=== PATIENT | female | born 1950 | race Caucasian/White ===

== ENCOUNTER 2016-12-06 09:45 | Outpatient (CLI) | payer MEDICARE ==
--- NOTE | 2016-12-06 10:54 | Mammography Report ---
BILATERAL MAMMOGRAM: Patient with history of right breast cancer. FINDINGS: The breasts are almost entirely fat (<25% glandular). No mass, distortion, suspicious calcification, or skin change is seen. There are no significant changes compared to prior exam dating back to 2014. CAD was utilized. IMPRESSION: Negative mammogram. There is no mammographic evidence of malignancy. RECOMMENDATION: Follow-up per ACS guidelines. BI-RADS CATEGORY: 1 = Negative ACR BI-RADS MAMMOGRAPHIC CODES: 0 = Needs additional imaging evaluation; 1 = Negative; 2 = Benign; 3 = Probably benign; 4 = Suspicious; 5 = Malignant; 6 = Known biopsy-proven malignancy COMMENT: 1. Dense breast tissue, i.e., adenosis, fibrocystic changes, etc., may obscure an underlying neoplasm. 2. Approximately 10% of cancers are not detected with mammography. 3. A negative mammography report should not delay biopsy if a clinically suspicious mass is present. COMMENT: Patient follow-up letters are generated in [employer].
== END 2016-12-06 09:46 | disposition home or self-care (01) ==
LOC: MAMMO 09:45
PROVIDERS: ATTEND Internal Medicine
DX: Z12.31 Encounter for screening mammogram for malignant neoplasm of breast (principal); Z85.3 Personal history of malignant neoplasm of breast
CPT/HCPCS: 77067; G0202

== ENCOUNTER 2017-03-03 09:52 | Outpatient (CLI) | payer MEDICARE ==
--- NOTE | 2017-03-03 11:10 | Mammography Report ---
BONE DENSITY STUDY: Postmenopausal osteoporosis. DEFINITIONS: BMD = Bone Mineral Density T-score = BMD related to mean peak bone mass of young adult (mean expressed in Standard Deviation) Z-score = Age matched BMD expressed in SD World Health Organization (WHO) Diagnostic Criteria Normal T-score > -1 SD Osteopenia T-score between -1 and -2.4 SD Osteoporosis T-score -2.5 SD or below FINDINGS: The weighted average BMD of lumbar spine L1-L4 is 0.927 with a T-score of -1.1. The weighted average BMD of the left hip is 0.843 with a T-score of -0.8. IMPRESSION: The patient's average T-score is diagnostic for osteopenia and average relative risk for fracture. NOTE: BMD is not the only risk factor for fracture; also consider factors such as the patient's age, risk of falling, previous osteoporotic fracture, family history of osteoporotic fractures, current smoker, and low body weight. Mckoy's triangle is a region of interest in femur, predominantly of trabecular bone. It is not a true anatomic site, and ISCD does not recommend its use clinically.
== END 2017-03-03 09:53 | disposition home or self-care (01) ==
LOC: MAMMO 09:52
PROVIDERS: ATTEND Obstetrics & Gynecology
DX: M85.88 Other specified disorders of bone density and structure, other site (principal); M81.6 Localized osteoporosis [Lequesne]; Z78.0 Asymptomatic menopausal state
CPT/HCPCS: 77080

== ENCOUNTER 2017-12-08 09:21 | Outpatient (CLI) | payer MEDICARE ==
--- NOTE | 2017-12-08 16:15 | Mammography Report ---
BILATERAL DIGITAL SCREENING MAMMOGRAM with CAD: 12/08/17 09:21:00 CLINICAL: Routine screening. COMPARISON:12/06/16 FINDINGS: The breasts are almost entirely fatty. No mass, architectural distortion or suspicious calcifications. IMPRESSION: No mammographic evidence of malignancy. BI-RADS CATEGORY: 1 - - Negative RECOMMENDATION: Routine mammographic screening in one year. COMMENT: Patient follow-up letters are generated by our [employer] application.
== END 2017-12-08 09:22 | disposition home or self-care (01) ==
LOC: MAMMO 09:21
PROVIDERS: ATTEND Internal Medicine
DX: Z12.31 Encounter for screening mammogram for malignant neoplasm of breast (principal)
CPT/HCPCS: 77067

== ENCOUNTER 2019-01-27 10:29 | Outpatient (CLI) | payer MEDICARE ==
--- NOTE | 2019-01-27 13:26 | Mammography Report ---
BILATERAL DIGITAL SCREENING MAMMOGRAM with CAD: 01/27/19 10:29:00 CLINICAL: Routine screening. COMPARISON:12/08/17 FINDINGS: The breasts are almost entirely fatty. No mass, architectural distortion or suspicious calcifications. IMPRESSION: No mammographic evidence of malignancy. BI-RADS CATEGORY: 1 - - Negative RECOMMENDATION: Routine mammographic screening in one year. COMMENT: Patient follow-up letters are generated by our [employer] application.
== END 2019-01-27 10:30 | disposition home or self-care (01) ==
LOC: MAMMO 10:29
PROVIDERS: ATTEND Internal Medicine
DX: Z12.31 Encounter for screening mammogram for malignant neoplasm of breast (principal)
CPT/HCPCS: 77067

== ENCOUNTER 2019-09-08 10:45 | Emergency (ER) | payer MEDICARE ==
[2019-09-08] MEDS ORDERED: ACETAMINOPHEN 325 MG TAB ONE (11:04)
[2019-09-08] MEDS ORDERED: ACETAMINOPHEN 325 MG TAB PO ONE (11:05)
--- NOTE | 2019-09-08 11:07 | Emergency Department Report ---
Chief Complaint: Back Pain/Injury Stated Complaint: PAIN ON MY BACK Time Seen by Provider: 09/08/19 11:06 - HPI History of Present Illness: 69 y/o fem p/w non traumatic lower back pain x 1 week, paralumbar walks w steady gait neuro non focal bmp, ck, ua, ct a/p apap for pain reassess ok for minor care Vital Signs 09/08/19 10:59 Temperature 98.3 F Pulse Rate 83 Respiratory 18 Rate Blood Pressure 137/59 O2 Sat by Pulse 98 Oximetry - Exam Vital Signs: Vital Signs 09/08/19 10:59 Temperature 98.3 F Pulse Rate 83 Respiratory 18 Rate Blood Pressure 137/59 O2 Sat by Pulse 98 Oximetry MSE screening note: Focused history and physical exam performed. Due to findings the following was ordered: ED Disposition for MSE Condition: Stable
[2019-09-08 12:18] LABS: Bacteria,Urine 1+ /HPF (Negative); Bilirubin,Urine NEG (Negative); Blood,Urine MOD (Negative); Color,Urine Yellow (Yellow); Mucus,Urine FEW /HPF; Urobilinogen,Urine < 2.0 mg/dL (<2.0)
--- NOTE | 2019-09-08 12:59 | Cat Scan Report ---
CT ABDOMEN AND PELVIS WITHOUT CONTRAST HISTORY: Nontraumatic subacute lower back pain for 2 days. History of right breast cancer. COMPARISON: PET CT 10/11/2014 TECHNIQUE: Routine abdominal and pelvic CT exam performed without contrast. Lack of intravenous cont rast limits evaluation of the vascular and solid organs.. All CT scans at this location are performed using CT dose reduction for ALARA by means of automated exposure control. FINDINGS: CT ABDOMEN: Lung Bases: Clear. Liver: Several small benign cysts of the left and right hepatic lobes. Benign cysts and calcification s of the surface of the lateral segment of the left lobe. Biliary: Normal gallbladder and bile ducts. Spleen: No significant abnormality. Unenlarged. Pancreas: Normal. Adrenals: Normal. Kidneys: Normal with nondilated renal collecting systems and ureters. Renal mass, calculus or cyst. Lymphatics: No lymphadenopathy. Vasculature: No significant abnormality. Bowel/Peritoneum: No significant abnormality. No free air. No free fluid. Normal appendix. CT PELVIC: : No significant abnormality. Normal uterus, urinary bladder and rectum. Normal right ovary with a 1.6 cm dominant follicle. A left ovary is not identified. No adnexal mass or free fluid. Lymphatics: No lymphadenopathy. Osseous Structures: No suspicious bone lesions. L2-3 degenerative disc disease with narrowing of the disc space, vacuum disc phenomenon and anterior osteophytes. Lesser degrees of degenerative disc dise ase at L3-4, L4-5 and L5-S1. Additional Findings: None IMPRESSION: 1. Benign hepatic cysts and calcifications. 2. No evidence of metastatic disease. 3. Lumbar degenerative disc disease, worse at L2-L3. Signer Name: Vijay Valenzuela MD Signed: 09/08/2019 12:55 PM Workstation Name: [id number]
[2019-09-08 13:08] LABS: BUN/Creatinine Ratio 24; Blood Urea Nitrogen 17 mg/dL (7-17); Calcium 9.1 mg/dL (8.4-10.2); Hemolysis Index 6
[2019-09-08] MEDS ORDERED: HYDROcodone/ACETAMINOPHEN 10-325MG TAB PO ONE (15:36)
[2019-09-08] MEDS ORDERED: LIDOCAINE-MPF (1%) 10 MG/1 ML VIAL 5 ML INFILTRATI ONE (15:36)
--- NOTE | 2019-09-08 16:22 | Emergency Department Report ---
ED Back Pain/Injury HPI - General Chief Complaint: Back Pain/Injury Stated Complaint: PAIN ON MY BACK Time Seen by Provider: 09/08/19 11:06 Source: patient Limitations: No Limitations - History of Present Illness Initial Comments: This is a 69-year-old female nontoxic, well nourished in appearance, no acute signs of distress presents to the ED with c/o of acute on chronic lower back pain. Patient stated that the past 2 days she was moving and developed this pain. Patient denies any radiation of pain. Patient denies any trauma. Denies any bladder or bowel instability. Patient denies any urinary symptoms. Denies any fever, chills, nausea, vomiting, headache, stiff neck, chest pain or shortness of breath. Patient denies any numbness or tingling. Patient stated allergies to morphine. MD Complaint: back pain -: days(s) Similar Symptoms Previously: Yes Radiation: none Severity: mild Severity scale (0 -10): 8 Quality: aching Consistency: intermittent Improves With: immobilization, sitting upright Worsens With: movement, walking Context: while lifting, turning/twisting Associated Symptoms: denies other symptoms. denies: confusion, weakness, chest pain, numbness, difficulty walking, cough, difficulty urinating, diaphoresis, incontinence, fever/chills, constipation, headaches, abdominal pain, loss of appetite, malaise, nausea/vomiting, rash, seizure, shortness of breath, syncope - Related Data Previous Rx's Medication Instructions Recorded Last Taken Type oxyCODONE /ACETAMINOPHEN [Percocet 1 tab PO Q6HR PRN #14 tablet 01/01/14 Unknown Rx 5/325 mg] Cyclobenzaprine HCl [Flexeril 5 MG 5 mg PO QHS #10 tab 09/08/19 Unknown Rx TAB] Naproxen 500 mg PO Q12H PRN #10 tablet 09/08/19 Unknown Rx Sulfamethoxazole/Trimethoprim 1 each PO BID #14 tablet 09/08/19 Unknown Rx [Bactrim DS TAB] Allergies Allergy/AdvReac Type Severity Reaction Status Date / Time morphine AdvReac PALPATATIONS, Unverified 12/06/16 09:47 HEART BEATS HARD,FAST ED Review of Systems ROS: Stated complaint: PAIN ON MY BACK Other details as noted in HPI Constitutional: denies: chills, fever Eyes: denies: eye pain, eye discharge, vision change ENT: denies: ear pain, throat pain Respiratory: denies: cough, shortness of breath, wheezing Cardiovascular: denies: chest pain, palpitations Endocrine: no symptoms reported Gastrointestinal: denies: abdominal pain, nausea, diarrhea Genitourinary: denies: urgency, dysuria, discharge Musculoskeletal: back pain. denies: joint swelling, arthralgia Skin: denies: rash, lesions Neurological: denies: headache, weakness, paresthesias Psychiatric: denies: anxiety, depression Hematological/Lymphatic: denies: easy bleeding, easy bruising ED Past Medical Hx - Past Medical History Previous Medical History?: No - Surgical History Additional Surgical History: lumpectomy - Social History Smoking Status: Never Smoker Substance Use Type: None - Medications Home Medications: Home Medications Medication Instructions Recorded Confirmed Last Taken Type oxyCODONE /ACETAMINOPHEN [Percocet 1 tab PO Q6HR PRN #14 tablet 01/01/14 Unknown Rx 5/325 mg] Cyclobenzaprine HCl [Flexeril 5 MG 5 mg PO QHS #10 tab 09/08/19 Unknown Rx TAB] Naproxen 500 mg PO Q12H PRN #10 tablet 09/08/19 Unknown Rx Sulfamethoxazole/Trimethoprim 1 each PO BID #14 tablet 09/08/19 Unknown Rx [Bactrim DS TAB] ED Physical Exam - General Limitations: No Limitations General appearance: alert, in no apparent distress - Head Head exam: Present: atraumatic, normocephalic - Neck Neck exam: Present: normal inspection, full ROM. Absent: tenderness, meningismus, lymphadenopathy - Respiratory Respiratory exam: Present: normal lung sounds bilaterally. Absent: respiratory distress, wheezes, rales, rhonchi, stridor, chest wall tenderness, accessory muscle use, decreased breath sounds, prolonged expiratory - Cardiovascular Cardiovascular Exam: Present: regular rate, normal rhythm, normal heart sounds. Absent: bradycardia, tachycardia, irregular rhythm, systolic murmur, diastolic murmur, rubs, gallop - GI/Abdominal GI/Abdominal exam: Present: soft, normal bowel sounds. Absent: distended, tenderness, guarding, rebound, rigid, diminished bowel sounds - Extremities Exam Extremities exam: Present: normal inspection, full ROM - Back Exam Back exam: Present: normal inspection, full ROM, paraspinal tenderness (lumbar paraspinal). Absent: tenderness, CVA tenderness (R), CVA tenderness (L), muscle spasm, vertebral tenderness, rash noted - Expanded Back Exam Expanded Back exam: Absent: saddle anesthesia Back exam: Negative Straight Leg Raising: Left, Right - Neurological Exam Neurological exam: Present: alert, oriented X3, normal gait - Psychiatric Psychiatric exam: Present: normal affect, normal mood - Skin Skin exam: Present: warm, dry, intact, normal color. Absent: rash ED Course Vital Signs 09/08/19 09/08/19 10:59 11:08 Temperature 98.3 F Pulse Rate 83 Respiratory 18 18 Rate Blood Pressure 137/59 O2 Sat by Pulse 98 Oximetry - Reevaluation(s) Reevaluation #1: 09/08/19 16:23 Patient is speaking in full sentences with no signs of distress noted. ED Medical Decision Making - Lab Data Result diagrams: 09/08/19 12:23 - Medical Decision Making This is a 69-year-old female that presents with UTI and low back strain. Patient is stable was examined by me. There is no spinal tenderness. There is no cauda equina syndrome during examination. No bladder or bowel instability. Urine culture was sent and pending. Labs unremarkable. CT dictated by the radiologist. Patient received [place] and Rocephine IM in the ED which preceded his symptoms has resolved and subsided. Patient is discharged with muscle relaxant and Naproxen. Patient was instructed not to operate any machinery while taking muscle relaxant as they cause her drowsiness. Patient was referred to Follow-up with a primary care doctor in 3-5 days or if symptoms worsen and continue return to emergency room as soon as possible. At time of discharge, the patient does not seem toxic or ill in appearance. No acute signs of distress noted. Patient agrees to discharge treatment plan of care. No further questions noted by the patient. This chart is dictated with using [employer] Critical care attestation.: If time is entered above; I have spent that time in minutes in the direct care of this critically ill patient, excluding procedure time. ED Disposition Clinical Impression: Low back strain Qualifiers: Encounter type: initial encounter Qualified Code(s): S39.012A - Strain of muscle, fascia and tendon of lower back, initial encounter UTI (urinary tract infection) Qualifiers: Urinary tract infection type: acute cystitis Hematuria presence: with hematuria Qualified Code(s): N30.01 - Acute cystitis with hematuria Disposition: TO HOME OR SELFCARE Is pt being admited?: No Does the pt Need Aspirin: No Condition: Stable Instructions: Urinary Tract Infection in Women (ED), Low Back Strain (ED), Cyclobenzaprine (By mouth) Additional Instructions: Follow-up with your primary care doctor in 3-5 days or if symptoms worsen such as bladder or bowel stability, chest pain, short of breath, numbness or tingling sensation in extremities, headache, dizziness, visual changes, nausea vomiting, or abdominal pain, return back to emergency room as was possible. Take ibuprofen and Flexeril as prescribed. Do not operate heavy machinery while taking Flexeril due to sedation Prescriptions: Cyclobenzaprine HCl [Flexeril 5 MG TAB] 5 mg PO QHS #10 tab Sulfamethoxazole/Trimethoprim [Bactrim DS TAB] 1 each PO BID #14 tablet Naproxen 500 mg PO Q12H PRN #10 tablet PRN Reason: Pain, Moderate (4-6) Referrals: GILDARDO HOYOS MD [Primary Care Provider] - 3-5 Days PRIMARY CAREMD [Referring] - 3-5 Days LUIS ENRIQUE PACKER MD [Staff Physician] - 3-5 Days [facility] [Outside] - 3-5 Days
[2019-09-08 16:38] VITALS: BP 134/55
== END 2019-09-08 17:28 | disposition home or self-care (01) ==
LOC: ED 10:45
DX: S39.012A Strain of muscle, fascia and tendon of lower back, initial encounter (principal); N39.0 Urinary tract infection, site not specified; Z79.899 Other long term (current) drug therapy; Z88.5 Allergy status to narcotic agent; X50.0XXA Overexertion from strenuous movement or load, initial encounter; Y93.89 Activity, other specified; Y92.89 Other specified places as the place of occurrence of the external cause; Y99.8 Other external cause status
CPT/HCPCS: 36415; 74176; 80048; 81001; 82550; 96372; 99284; J0696

== ENCOUNTER 2020-11-23 08:35 | Outpatient (CLI) | payer MEDICARE ==
[2020-11-23 09:04] LABS: Bilirubin,Urine NEG (Negative); Blood,Urine NEG (Negative); Color,Urine Yellow (Yellow); Mucus,Urine FEW /HPF; Protein,Urine <15 mg/dL mg/dL (Negative); Urobilinogen,Urine < 2.0 mg/dL (<2.0)
[2020-11-23 09:24] LABS: Hematocrit 29.7 % (30.3-42.9); Hemoglobin 10.1 gm/dl (10.1-14.3); Mean Corpuscular HGB Conc 34 % (30-34); Platelet Count 285 K/mm3 (140-440); Red Blood Count 2.63 M/mm3 (3.65-5.03)
[2020-11-23 09:26] LABS: Alanine Aminotransferase 8 units/L (7-56); Blood Urea Nitrogen 15 mg/dL (7-17); Calcium 8.6 mg/dL (8.4-10.2); Chol/HDL Ratio 2.08 %; HDL Cholesterol 67 mg/dL (40-59); Hemolysis Index 4; LDL Cholesterol,Direct 73 mg/dL (50-130)
[2020-11-23 09:27] LABS: BUN/Creatinine Ratio 25
[2020-11-23 09:32] LABS: Mean Corpuscular Volume 113 fl (79-97); Red Cell Distribution Width 27.4 % (13.2-15.2)
[2020-11-23 10:52] LABS: Anisocytosis 3+; Macrocytosis 1+; Total Cells Counted 100
[2020-11-23 10:53] LABS: Platelet Estimate Consistent w Auto
[2020-11-25 23:33] LABS: Vitamin D, 25-OH, D2 <4 ng/mL
== END 2020-11-23 08:36 | disposition home or self-care (01) ==
LOC: LAB 08:35
PROVIDERS: ATTEND Internal Medicine
DX: Z13.220 Encounter for screening for lipoid disorders (principal); Z13.1 Encounter for screening for diabetes mellitus; E55.9 Vitamin D deficiency, unspecified; N39.0 Urinary tract infection, site not specified; R94.6 Abnormal results of thyroid function studies; E11.9 Type 2 diabetes mellitus without complications
CPT/HCPCS: 36415; 80053; 80061; 81001; 82306; 83036; 84443; 85007; 85025; 87076; 87086; 87186

== ENCOUNTER 2020-11-30 09:51 | Outpatient (CLI) | payer MEDICARE ==
--- NOTE | 2020-11-30 11:38 | XRay Report ---
Right ankle-3 views INDICATION: RIGHT ANKLE PAIN. COMPARISON: None. IMPRESSION: No acute osseous abnormality. Soft tissues are normal. Normal alignment. Mild entheso pathic change along the calcaneal tuberosity. Signer Name: Gigi Rios MD Signed: 11/30/2020 11:34 AM Workstation Name: [id number]
--- NOTE | 2020-11-30 16:02 | Mammography Report ---
DEXA BONE DENSITY SCAN INDICATION / CLINICAL INFORMATION: SCREENING FOR OSTEOPOROSIS. 70 years Female COMPARISON: None available. LUMBAR SPINE, L1-L4: - Bone mineral density (BMD) = 0.974 g/cm2. - T-score = -0.7 - Z-score = 1.5 Change (%) since most recent prior (if available): None available. LEFT HIP, NECK : - Bone mineral density (BMD) = 0.759 g/cm2. - T-score = -0.8 - Z-score = 0.9 Change (%) since most recent prior (if available): None available. IMPRESSION: 1. WHO Classification: Normal bone density. Fracture Risk: Not Increased. 2. 10-Year Fracture Risk (FRAX) = Major Osteoporotic Not reported.% / Hip: Not reported.% FRAX generally not reported for patients with normal or osteoporotic BMD, in [id number] car ents younger than age 50, or in patients undergoing pharmacotherapy BMD Reporting Guidelines (ISCD, 2015) BMD Reporting in Postmenopausal Women and in Men Age 50 and Older - T-scores are preferred. - The WHO densitometric classification is applicable. BMD Reporting in Females Prior to Menopause and in Males Younger Than Age 50 - Z-scores, not T-scores, are preferred. This is particularly important in children. - A Z-score of -2.0 or lower is defined as below the expected range for age, and a Z-score above -2.0 is within the expected range for age. - Osteoporosis cannot be diagnosed in men under age 50 on the basis of BMD alone. - The WHO diagnostic criteria may be applied to women in the menopausal transition. http://www.iscd.org/official-positions/4794-kvda-okuplhib-positions-adult/ Signer Name: Mauro Saxena MD Signed: 11/30/2020 3:58 PM Workstation Name: [id number]
== END 2020-11-30 09:52 | disposition home or self-care (01) ==
LOC: MAMMO 09:51 → MERGE 09:51 → MAMMO 09:52
PROVIDERS: ATTEND Internal Medicine
DX: Z13.820 Encounter for screening for osteoporosis (principal); M79.9 Soft tissue disorder, unspecified; Z78.0 Asymptomatic menopausal state
CPT/HCPCS: 77080

== ENCOUNTER 2021-02-26 11:42 | Outpatient (CLI) | payer MEDICARE ==
--- NOTE | 2021-02-26 16:45 | Mammography Report ---
DIGITAL SCREENING MAMMOGRAM WITH CAD, 02/26/2021 CLINICAL INFORMATION / INDICATION: Routine screening mammography. TECHNIQUE: Digital bilateral 2D mammography was obtained in the craniocaudal and mediolateral obliqu e projections. This examination was interpreted with the benefit of Computer-Aided Detection analysis . COMPARISON: 01/27/2019, 12/06/2016 FINDINGS: Breast Density: The breasts are almost entirely fatty. No dominant mass, suspicious calcifications, or architectural distortion in either breast. Stable benign nodule inferior left breast. Overall, no interval change. IMPRESSION: No mammographic evidence of malignancy. Follow up recommendation: Routine yearly BI-RADS Category 2: Benign. A "normal" or negative report should not discourage follow up or biopsy of a clinically significant f inding. A written summary of these findings will be mailed to the patient. The patient will be entered into a mammography reporting system which will generate a reminder letter for the patient's next appointmen t at the appropriate interval. The [employer] recommends yearly mammograms starting at age 40 and continuing as l maurizio as a woman is in good health. Breast MRI is recommended for women with an approximate 20-25% or greater lifetime risk of breast cancer, including women with a strong family history of breast or ova aamir cancer or who have been treated for Hodgkin's disease. Signer Name: Tierney Alcala MD Signed: 02/26/2021 4:40 PM Workstation Name: [id number]
== END 2021-02-26 11:43 | disposition home or self-care (01) ==
LOC: MAMMO 11:42
PROVIDERS: ATTEND Internal Medicine
DX: Z12.31 Encounter for screening mammogram for malignant neoplasm of breast (principal)
CPT/HCPCS: 77067

== ENCOUNTER 2021-04-03 09:21 | Outpatient (CLI) | payer MEDICARE | END 2021-04-03 09:22 | disposition home or self-care (01) | LOC: LAB 09:21 | PROVIDERS: ATTEND Internal Medicine | DX: E03.9 Hypothyroidism, unspecified (principal) | CPT/HCPCS: 36415; 84443 ==

== ENCOUNTER 2021-09-18 10:41 | Outpatient (CLI) | payer MEDICARE ==
[2021-09-18 12:04] LABS: Bacteria,Urine 4+ /HPF (Negative); Mucus,Urine 2+ /HPF
[2021-09-18 12:21] LABS: Bilirubin,Urine Negative (Negative); Color,Urine Straw (Yellow); WBC,Urine > 182.0 /HPF (0.0-6.0)
[2021-09-18 12:22] LABS: Blood,Urine Small (Negative)
--- NOTE | 2021-09-18 12:24 | XRay Report ---
ABDOMEN 1 VIEW(S) INDICATION / CLINICAL INFORMATION: UNSPECIFIED ABDOMINAL PAIN. COMPARISON: None available. FINDINGS: TUBES / LINES: None. BOWEL GAS PATTERN: No significant abnormality. FREE AIR / EXTRALUMINAL GAS: None seen. ADDITIONAL FINDINGS: No significant additional findings. IMPRESSION: 1. No significant abnormality. Signer Name: Mauro Saxena MD Signed: 09/18/2021 12:20 PM Workstation Name: [id number]
== END 2021-09-18 10:42 | disposition home or self-care (01) ==
LOC: XRAY 10:41
PROVIDERS: ATTEND Internal Medicine
DX: R10.9 Unspecified abdominal pain (principal); N39.0 Urinary tract infection, site not specified
CPT/HCPCS: 74018; 81001; 87086

== ENCOUNTER 2021-09-26 08:59 | Outpatient (CLI) | payer MEDICARE ==
--- NOTE | 2021-09-26 11:47 | Ultrasound Report ---
ULTRASOUND RENAL INDICATION / CLINICAL INFORMATION: N39.0 URINARY TRACT INFECTION,SITE NOT SPECIFIED. COMPARISON: CT abdomen pelvis dated 09/08/2019 FINDINGS: RIGHT KIDNEY: Length = 10.9 cm. - Echogenicity: Normal. - Cortical Thickness: Normal. - Hydronephrosis: Mild right hydronephrosis.. - Cyst / Mass: None. - Stones: None seen. LEFT KIDNEY: Length = 9.9 cm. - Echogenicity: Normal. - Cortical Thickness: Normal. - Hydronephrosis: None. - Cyst / Mass: None. - Stones: None seen. URINARY BLADDER: No significant abnormality. FREE FLUID: None. ADDITIONAL FINDINGS: None. IMPRESSION: 1. Mild right hydronephrosis. No obstructing stone or mass identified. Signer Name: Jeremy Link MD Signed: 09/26/2021 10:12 AM Workstation Name: [email or web address]
== END 2021-09-26 09:00 | disposition home or self-care (01) ==
LOC: US 08:59
PROVIDERS: ATTEND Internal Medicine
DX: N13.30 Unspecified hydronephrosis (principal); N39.0 Urinary tract infection, site not specified
CPT/HCPCS: 76770

== ENCOUNTER 2022-03-25 10:57 | Outpatient (CLI) | payer MEDICARE ==
--- NOTE | 2022-03-27 11:30 | Mammography Report ---
DIGITAL SCREENING MAMMOGRAM WITH CAD, 03/25/2022 CLINICAL INFORMATION / INDICATION: Routine screening mammography. TECHNIQUE: Digital bilateral 2D mammography was obtained in the craniocaudal and mediolateral obliqu e projections. This examination was interpreted with the benefit of Computer-Aided Detection analysis . COMPARISON: 02/26/2021, 02/24/2020, 01/27/2019 FINDINGS: Breast Density: There are scattered areas of fibroglandular density. No dominant mass, suspicious calcifications, or architectural distortion in either breast. Post-surgical changes are again noted in the right breast. Overall, there has been no significant int erval change. IMPRESSION: No mammographic evidence of malignancy. Follow up recommendation: Routine yearly screening mammogram. BI-RADS Category 2: BENIGN. A "normal" or negative report should not discourage follow up or biopsy of a clinically significant f inding. A written summary of these findings will be mailed to the patient. The patient will be entered into a mammography reporting system which will generate a reminder letter for the patient's next appointmen t at the appropriate interval. The [employer] recommends yearly mammograms starting at age 40 and continuing as l maurizio as a woman is in good health. Breast MRI is recommended for women with an approximate 20-25% or greater lifetime risk of breast cancer, including women with a strong family history of breast or ova aamir cancer or who have been treated for Hodgkin's disease. Signer Name: Brenda Acosta MD Signed: 03/27/2022 11:26 AM Workstation Name: [id number]
== END 2022-03-25 10:58 | disposition home or self-care (01) ==
LOC: MAMMO 10:57
PROVIDERS: ATTEND Internal Medicine
DX: Z12.31 Encounter for screening mammogram for malignant neoplasm of breast (principal)
CPT/HCPCS: 77067